=== PATIENT | female | born 2000 | race Caucasian/White ===

== ENCOUNTER 2022-09-15 13:25 | Outpatient (CLI) | payer OTHER, SELFPAY ==
[2022-09-18 17:22] LABS: Ionized Calcium 4.9 mg/dL (4.8-5.6)
== END 2022-09-15 13:26 | disposition home or self-care (01) ==
PROVIDERS: PCP Student in an Organized Health Care Education/Training Program; Visit Provider Student in an Organized Health Care Education/Training Program
DX: E83.51 Hypocalcemia (principal)
CPT/HCPCS: 36415; 82330